=== PATIENT | female | born 1960 | race Two or more races ===

== ENCOUNTER 2021-02-01 11:24 | Emergency (ER) | payer OTHER ==
[~2021-02-01] VITALS: Ht 170.2 cm; Wt 84.8 kg
[2021-02-01 13:40] VITALS: BP 150/96
== END 2021-02-01 14:32 | disposition home or self-care (01) ==
LOC: ER 11:24
DX: S60.221A Contusion of right hand, initial encounter (principal); D16.11 Benign neoplasm of short bones of right upper limb; I10 Essential (primary) hypertension; Z88.8 Allergy status to other drugs, medicaments and biological substances; W54.0XXA Bitten by dog, initial encounter; Y93.89 Activity, other specified; Y92.89 Other specified places as the place of occurrence of the external cause; Y99.8 Other external cause status
CPT/HCPCS: 73130